=== PATIENT | male | born 1970 | race Caucasian/White ===

== ENCOUNTER 2018-08-10 21:51 | Emergency (ER) | payer OTHER ==
[2018-08-10] MEDS ORDERED: FAMOTIDINE 20 MG/2 ML VIAL IV STA (22:17)
[2018-08-10] MEDS ORDERED: ASPIRIN 81 MG PO STA (22:17)
[2018-08-10] MEDS ORDERED: MAG HYDROX/AL HYDROX/SIMETH 30 ML CUP PO PRN (22:17)
--- NOTE | 2018-08-10 22:25 | ED ---
Chest Pain HPI - General Chief Complaint: Chest Pain Stated Complaint: Chest Pressure Time Seen by Provider: 08/10/18 22:05 Source: patient Mode of arrival: wheelchair Limitations: no limitations - History of Present Illness Initial Comments: Patient is a 47-year-old male with a history of a stroke last year who presents with a chief complaint of atypical chest pain. The patient states that for the last 3 days she has had intermittent chest pressure, usually after eating, that he characterizes as his grandchild sitting on his chest. Patient states that he does not have any symptoms with exertion. He denies nausea, vomiting, diaphoresis, or lightheadedness. He has not had a heart attack previously. Patient states he currently is asymptomatic. - Related Data Home Medications Medication Instructions Recorded Confirmed Aspirin EC [Ecotrin Low Dose] 81 mg PO DAILY 08/10/18 08/10/18 Atorvastatin [Lipitor] 20 mg PO HS 08/10/18 08/10/18 Hydrochlorothiazide [Hydrodiuril] 12.5 mg PO HS 08/10/18 08/10/18 Labetalol [Trandate] 200 mg PO BID 08/10/18 08/10/18 Losartan [Cozaar] 150 mg PO HS 08/10/18 08/10/18 NIFEdipine [NIFEdipine ER] 120 mg PO QAM 08/10/18 08/10/18 Spironolactone [Aldactone] 50 mg PO DAILY 08/10/18 08/10/18 Allergies Allergy/AdvReac Type Severity Reaction Status Date / Time No Known Allergies Allergy Verified 08/10/18 23:51 Review of Systems ROS Statement: Those systems with pertinent positive or pertinent negative responses have been documented in the HPI. ROS Other: All systems not noted in ROS Statement are negative. Cardiovascular: Reports: chest pain Past Medical History Past Medical History: CVA/TIA History of Any Multi-Drug Resistant Organisms: None Reported Past Surgical History: Orthopedic Surgery Past Psychological History: No Psychological Hx Reported Smoking Status: Light tobacco smoker Past Alcohol Use History: Occasional Past Drug Use History: None Reported General Exam Limitations: no limitations General appearance: alert, in no apparent distress Head exam: Present: atraumatic, normocephalic Eye exam: Present: normal appearance ENT exam: Present: normal exam Neck exam: Present: normal inspection Respiratory exam: Present: normal lung sounds bilaterally. Absent: respiratory distress, wheezes Cardiovascular Exam: Present: regular rate, normal rhythm GI/Abdominal exam: Present: soft. Absent: distended, tenderness Rectal exam: Present: deferred Extremities exam: Present: normal inspection Back exam: Present: normal inspection Neurological exam: Present: alert, oriented X3, normal gait Psychiatric exam: Present: normal affect, normal mood Skin exam: Present: warm, dry, intact Course Vital Signs 08/10/18 08/10/18 08/10/18 21:54 23:07 23:30 Temperature 98.1 F Pulse Rate 98 83 Respiratory 18 18 Rate Blood Pressure 156/94 117/77 O2 Sat by Pulse 99 96 97 Oximetry Chest Pain MDM - MDM Patient presents with a chief complaint of atypical chest pain. On initial evaluation, vitals are stable, patient is noted to stress. EKG performed at 2207 shows normal sinus rhythm with a rate 92 bpm. Segments bilirubin normal limits, there are no acute signs of ischemia. There are no previous EKG to compare to. EKG is otherwise unremarkable. Patient will be evaluated with basic labs including troponin and chest x-ray. Patient is low risk by heart score prior to troponins. 12:17 AM Laboratory evaluation this patient is unremarkable. Chest shows no acute process. At this time, patient has a low heart score, he is appropriate for outpatient follow-up. Discussed results and findings with the patient. She had decision-making was used to determine the patient will follow up with primary care in 1-2 days to schedule an outpatient stress test. He was instructed to return to the emergency department if symptoms worsen or change. Disposition Clinical Impression: Atypical chest pain Disposition: HOME SELF-CARE Condition: Good Instructions: Chest Pain (ED) Is patient prescribed a controlled substance at d/c from ED?: No Referrals: [facility],Clinic [Primary Care Provider] - 1-2 days
[2018-08-10 22:47] LABS: Basophils # (A) 0.1 k/uL (0-0.2); Basophils % (A) 1 %; Eosinophils # (A) 0.2 k/uL (0-0.7); Eosinophils % (A) 2 %; HCT 46.2 % (39.0-53.0); HGB 15.6 gm/dL (13.0-17.5); Lymphocytes % (A) 17 %; MCH 30.8 pg (25.0-35.0); MCHC 33.7 g/dL (31.0-37.0); MCV 91.4 fL (80.0-100.0); Mean Platelet Volume 6.8; Monocytes # (A) 0.7 k/uL (0-1.0); Monocytes % (A) 6 %; Neutrophils # (A) 8.8 k/uL (1.3-7.7); Neutrophils % (A) 74 %; Platelet Count 322 k/uL (150-450); RBC 5.06 m/uL (4.30-5.90); RDW 12.7 % (11.5-15.5); WBC 11.9 k/uL (3.8-10.6)
[2018-08-10 23:01] LABS: Albumin 4.6 g/dL (3.5-5.0); Calcium 9.9 mg/dL (8.4-10.2); Total Bilirubin 0.5 mg/dL (0.2-1.3); Total Protein 7.5 g/dL (6.3-8.2)
--- NOTE | 2018-08-11 00:10 | XR ---
EXAMINATION TYPE: XR chest 2V DATE OF EXAM: 08/11/2018 COMPARISON: NONE HISTORY: Chest pain TECHNIQUE: Frontal and lateral views of the chest are obtained. FINDINGS: Heart and mediastinum are normal. Lungs are clear. Diaphragm is normal. Bony thorax is nor mal. Pulmonary vascularity is normal. IMPRESSION: Normal chest
[2018-08-11 00:53] VITALS: BP 115/69; PULSE 81; RESP 16; TEMP 98
== END 2018-08-11 00:57 | disposition home or self-care (01) ==
LOC: EC 21:51
DX: R07.89 Other chest pain (principal); F17.200 Nicotine dependence, unspecified, uncomplicated; Z86.73 Personal history of transient ischemic attack (TIA), and cerebral infarction without residual deficits; Z79.82 Long term (current) use of aspirin; Z79.899 Other long term (current) drug therapy
CPT/HCPCS: 36415; 71046; 80053; 84484; 85025; 93005; 96374; 99285